=== PATIENT | male | born 1965 | race Caucasian/White ===

== ENCOUNTER 2020-12-15 11:41 | Emergency (ER) | payer MEDICARE ==
[~2020-12-15 11:41] MED LIST: ALDACTONE25 MG PO; ASPIRIN CHEWABL81 MG PO; BENTYL10 MG PO; BUMEX1 MG PO; BUSPAR5 MG PO; CARAFATE1 GM PO; CARDIZEM60 MG PO; CERTAGEN1 EACH PO; COLACE100 MG PO; CORDARONE200 MG PO; COUMADIN1 MG PO; DUONEB 2.5-0.5M1 AMP NEB; FUROSEMIDE 20MG20 MG PO; IRON325 M1 PO; K-DUR20 MEQ PO; LACTINEX1 EACH PO; LASIX40 MG PO; LEVAQUIN750 MG PO; LIPITOR20 MG PO; LOPRESSOR50 MG PO; MERREM1 GM IV; MICON-GUARD 2%85 GM EXT; MIRALAX17 GM PO; NEURONTIN100 MG PO; NEURONTIN300 MG PO; NORCO 5-325 TA1 EACH PO; NORVASC5 MG PO; PAXIL20 MG PO; PEPCID20 MG PO; PERCOCET 10/321 EACH PO; PHENAZOPYRIDINE PO; PRILOSEC20 MG PO; REMERON15 MG PO; REQUIP1 MG PO; SINGULAIR10 MG PO; VITAMIN A & D113 GM TOP; VITAMIN C 500500 MG PO; XANAX0.5 MG PO; XARELTO15 MG PO; XARELTO20 MG PO; XOPENEX1.25 MG/3 NEB; ZINC SULFATE220 M1 PO; [UNRECOGNIZED DRUG - MIXTURE] GT
[2020-12-15 12:45] LABS: INR 1.32 (0.9-1.2); PROTHROMBIN TIME 15.6 SECONDS (11.4-13.6)
[2020-12-15 12:55] LABS: ALBUMIN 3.2 g/dL (3.4-5.0); BILIRUBIN - TOTAL 0.5 mg/dL (0.2-1.0); BUN/CREAT RATIO (CALC) 12.7 RATIO; CREATININE 1.73 mg/dL (0.67-1.17); GLOBULIN (CALCULATION) 5.2 g/dL; POTASSIUM 3.9 mmol/L (3.5-5.1); TOTAL PROTEIN 8.4 g/dL (6.4-8.2)
[2020-12-15 13:31] LABS: CORONAVIRUS 2019 SARS-COV-2 NEGATIVE (NEGATIVE); INFLUENZA A NAA NEGATIVE (NEGATIVE)
== END 2020-12-16 03:00 | disposition other institution (70) ==
LOC: FER 11:41
PROVIDERS: Emergency Medicine
DX: I50.9 Heart failure, unspecified (principal); J95.03 Malfunction of tracheostomy stoma; J44.9 Chronic obstructive pulmonary disease, unspecified; E66.01 Morbid (severe) obesity due to excess calories; Z99.81 Dependence on supplemental oxygen; Z20.822 Contact with and (suspected) exposure to COVID-19
CPT/HCPCS: 36415; 36600; 71045; 80053; 82803; 83880; 84484; 85610; 87070; 87205; 93005; J1170; J1200; J2270; J2405; U0002